=== PATIENT | male | born 1990 | race Caucasian/White ===

== ENCOUNTER → 2017-10-29 | Outpatient (CLI) | payer OTHER ==
[~2017-10-29] MED LIST: OPTIRAY 320 IV PRN
--- NOTE | 2017-10-29 07:45 | DIAGNOSTIC IMAGING REPORT ---
CT NECK WITH INTRAVENOUS CONTRAST HISTORY: K11.9 Parotid [id number] MALE WITH RIGHT FACIAL/PAROTID MASS TECHNIQUE: Multiaxial CT images of the neck were performed following the use of intravenous contrast. COMPARISON STUDY: None. FINDINGS: The visualized brain parenchyma and orbits are unremarkable. The pterygopalatine fossa and parapharyngeal fat spaces are well-maintained. The thyroid gland enhances normally. Prevertebral soft tissues and the epiglottis are normal in thickness. The lung apices are clear. No fractures within the visualized osseous structures. The paranasal sinuses and mastoid air cells are clear. No cervical lymphadenopathy. The parotid and submandibular glands enhance normally. A few punctate tonsilliths within the left palatine tonsil. Mild prominence of the adenoid tonsils is likely age-related. There is a skin marker overlying the right mandibular location. Deep to the skin marker there is no significant abnormality. No masses, fluid collections, or enlarged lymph nodes. Normal bilateral masseter muscles. The major cervical vessels enhance normally. Hypoplastic left vertebral artery. IMPRESSION: No significant abnormality identified within the neck. Specifically, there are no masses identified within the right mandibular location. Electronically signed by: Jim Christiansen M.D. 10/29/2017 7:44 AM Dictated Date/Time: 10/29/2017 7:38 AM
== END | disposition home or self-care (01) ==
LOC: C.CTS 07:18
DX: K11.9 Disease of salivary gland, unspecified (principal)